=== PATIENT | male | born 1930 | race Two or more races ===

== ENCOUNTER 2016-05-24 01:01 | Inpatient (IN) | payer MEDICARE, BC ==
[2016-05-23 20:00] VITALS: BP 132/71
[~2016-05-24] VITALS: Ht 180.3 cm; Wt 62.1 kg
[2016-05-24 02:15] VITALS: BP 132/91
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
[2016-05-24] MEDS ORDERED: MAG HYDROX/AL HYDROX/SIMETH 30 ML UDC PO PRN (02:30)
[2016-05-24] MEDS ORDERED: ACETAMINOPHEN 325 MG TABLET PO PRN (02:30)
[2016-05-24] MEDS ORDERED: MAGNESIUM HYDROXIDE 30 ML UDC PO PRN (02:30)
[2016-05-24] MEDS ORDERED: IPRA3AMP IH (03:11)
[2016-05-24] MEDS ORDERED: FURO20TA4 PO (03:11)
[2016-05-24] MEDS ORDERED: POTA-58 PO (03:11)
[2016-05-24] MEDS ORDERED: PRED5TAB PO (03:11)
[2016-05-24] MEDS ORDERED: CLOP75TA2 PO (03:11)
[2016-05-24] MEDS ORDERED: AZIT250T6 PO (03:11)
[2016-05-24] MEDS ORDERED: RISP0.5T20 PO ×2 (03:11)
[2016-05-24] MEDS ORDERED: ATOR20TA PO (03:11)
[2016-05-24 03:57] VITALS: BP 86/50
[2016-05-24 03:59] VITALS: BP 86/50
[2016-05-24 04:01] VITALS: BP 132/71
--- NOTE | 2016-05-24 06:00 | NUR ---
GPS RN NOTE, PATIENT NEEDS A MED RECON AND BREATHING TREATMENTS. PAGED [facility] AND INFORMED DR AZEB SHAFFER. DR SHAFFER ORDERED ALBUTEROL 2.5MG Q4HR PRN VIA NEB AND IPRATROPIUM 0.5ML Q4HR PRN VIA NEB. DR SHAFFER ALSO STATED THAT SHE WOULD REVIEW MED RECON. WILL CONTINUE TO MONITOR THIS PATIENT.
[2016-05-24] MEDS ORDERED: IPRATROPIUM NEB FS 0.5 MG/2.5 ML AMPUL.NEB NEB PRN (06:30)
[2016-05-24] MEDS ORDERED: ALBUTEROL FS 2.5 MG/3 ML VIAL.NEB NEB PRN (06:30)
[2016-05-24 07:15] LABS: ALBUMIN 3.6 g/dL (3.4-5.0); BILIRUBIN,TOTAL 0.5 mg/dL (0.2-1.0); CALCIUM, SERUM 8.9 mg/dL (8.5-10.1); CREATININE 1.3 mg/dL (0.6-1.3); POTASSIUM 3.8 mmol/L (3.5-5.1); TOTAL PROTEIN, SERUM 6.7 g/dL (6.4-8.2)
--- NOTE | 2016-05-24 14:13 | NUR ---
PATIENT VERY ANXIOUS,A/O X1 CONFUSED, PARANOID, THROUGH BLANKET ON ARTIFICIAL FLOWERS DYER, COMBATIVE, AGGRESSIVE BEHAVIOR, HARD TO REDIRECT, CALLED DR BARRY, AND GET ORDER ZYPREXA 5 MG/ML IM X1 NOW, ORDER TAKEN, AND CARRIED OUT.
[2016-05-24] MEDS ORDERED: OLANZAPINE 10 MG VIAL IM ONE (14:30)
[2016-05-24] MEDS: BENZTROPINE MESYLATE (1 MG) 1 MG TABLET PO SCH ×3 (14:33→17:11)
--- NOTE | 2016-05-24 14:33 | NUR ---
ADMINISTERED ZYPREXA 5MG/ML IM X1, UPPER DELTOID AREA, PRESCRIBED, V/S TAKEN BP-110/ 85, P- 84, CONTINUED MONITORING.
[2016-05-24 16:00] VITALS: BP 104/71
[2016-05-24] MEDS: risperiDONE-M 0.5 MG TAB.RAPDIS PO SCH ×2 (17:00→17:10)
[2016-05-24] MEDS: busPIRone 5 MG TABLET PO SCH ×2 (17:00→17:11)
[2016-05-24] MEDS ORDERED: Medication Not On Formulary EA (Ipratropium/Albuterol Sulfate (Duoneb 2.5-0.5 Mg/3 Ml So IH SCH (17:00)
--- NOTE | 2016-05-24 18:57 | NUR ---
PT REFUSED 1700 MEDICATION, PT CONFUSED, IRRITABLE, MAGISTRATE NEXT TO THE PATIENT, SAFETY PRECAUTION MAINTAINED ALL THE TIME.
[2016-05-24 20:15] VITALS: BP 110/65
[2016-05-24] MEDS: ALBUTEROL FS 2.5 MG/3 ML VIAL.NEB NEB SCH ×2 (20:15→23:30)
[2016-05-24] MEDS: IPRATROPIUM NEB FS 0.5 MG/2.5 ML AMPUL.NEB NEB SCH ×2 (20:15→23:30)
[2016-05-24 20:43] LABS: BASOPHILS % (AUTO) 0.4 % (0.0-2.0); EOSINOPHILS # (AUTO) 0.9 /CMM (0.0-0.7); HEMATOCRIT 39 % (39-51); HEMOGLOBIN 12.9 g/dL (13.5-17.5); LYMPHOCYTES # (AUTO) 1.5 /CMM (0.8-4.8); LYMPHOCYTES % (AUTO) 23.5 % (20.0-44.0); MEAN CORPUSCULAR HEMOGLOBIN 30 PG (26.0-33.0); MEAN CORPUSCULAR HGB CONC 33 g/dl (31.0-36.0); MEAN CORPUSCULAR VOLUME 92 fL (80-96); MONOCYTES # (AUTO) 0.4 /CMM (0.1-1.30); MONOCYTES % (AUTO) 6.9 % (2.0-12.0); NEUTROPHILS # (AUTO) 3.6 /CMM (1.8-8.9); NEUTROPHILS % (AUTO) 55.2 % (43.0-81.0); PLATELET COUNT (AUTO) 271 /CMM (150-450); RDW COEFFICIENT OF VARIATION 13.1 (11.5-15.0); RED BLOOD CELL COUNT(AUTO) 4.23 MIL/uL (4.5-6.0); WHITE BLOOD COUNT (AUTO) 6.5 K/uL (4.3-11.0)
--- NOTE | 2016-05-24 20:49 | NUR ---
RN NOTES: PATIENT IN THE ROOM, CAREGIVER AT BEDSIDE, WILL LEAVE AT 2300,PT A/O X1, TRYING TO GET OUT OF THE DIANE-CHAIR, HAS DISORGANIZED THOUGHTS, DEMANDING, PT ON ROOM AIR, RESPIRATION EVEN AND UNLABORED, SAFETY PRECAUTION MAINTAINED ALL THE TIME, PERFORM VISUAL CHECK [id number] AND WILL CONTINUE TO MONITOR FOR ANY CHANGES IN BEHAVIOR
[2016-05-24] MEDS: CLOPIDOGREL BISULFATE 75 MG TABLET PO SCH (22:11)
[2016-05-24] MEDS: ATORVASTATIN 10 MG TABLET PO SCH (22:11)
--- NOTE | 2016-05-25 00:10 | NUR ---
PT REFUSED TX, NO RESP DISTRESS NOTED, RN NOTIFIED
[2016-05-25] MEDS: ALBUTEROL FS 2.5 MG/3 ML VIAL.NEB NEB SCH ×7 (03:36→22:49)
[2016-05-25] MEDS: IPRATROPIUM NEB FS 0.5 MG/2.5 ML AMPUL.NEB NEB SCH ×7 (03:36→22:49)
[2016-05-25] MEDS: busPIRone 5 MG TABLET PO SCH ×2 (07:48→18:54)
[2016-05-25] MEDS: POTASSIUM CHLORIDE 20 MEQ TAB.PRT.SR PO SCH (07:48)
[2016-05-25] MEDS: BENZTROPINE MESYLATE (1 MG) 1 MG TABLET PO SCH ×2 (07:48→18:54)
[2016-05-25] MEDS: FUROSEMIDE 20 MG TABLET PO SCH (07:48)
[2016-05-25] MEDS: risperiDONE-M 0.5 MG TAB.RAPDIS PO SCH ×3 (07:49→18:53)
[2016-05-25] MEDS: predniSONE 5 MG TABLET PO SCH (07:49)
[2016-05-25 08:37] VITALS: BP 100/60
--- NOTE | 2016-05-25 12:54 | NUR ---
Initial discharge plan: [place]. [place] 24 [place] [address] [facility] [id number] and will possibly discharge to [facility] [address] [place] [address] . will speak with and OLGA LIDIA Thomas [phone] and will help form safe and proper discharge.
[2016-05-25 15:52] VITALS: BP 106/78
[2016-05-25 20:40] VITALS: BP 104/60
[2016-05-25] MEDS: CLOPIDOGREL BISULFATE 75 MG TABLET PO SCH (21:36)
[2016-05-25] MEDS: ATORVASTATIN 10 MG TABLET PO SCH (21:36)
[2016-05-26] MEDS: ALBUTEROL FS 2.5 MG/3 ML VIAL.NEB NEB SCH ×4 (03:38→15:06)
[2016-05-26] MEDS: IPRATROPIUM NEB FS 0.5 MG/2.5 ML AMPUL.NEB NEB SCH ×4 (03:38→15:06)
[2016-05-26 08:00] VITALS: BP 103/55
[2016-05-26] MEDS: risperiDONE-M 0.5 MG TAB.RAPDIS PO SCH ×3 (08:59→18:21)
[2016-05-26] MEDS: predniSONE 5 MG TABLET PO SCH (08:59)
[2016-05-26] MEDS: FUROSEMIDE 20 MG TABLET PO SCH (08:59)
[2016-05-26] MEDS: BENZTROPINE MESYLATE (1 MG) 1 MG TABLET PO SCH ×2 (09:00→18:21)
[2016-05-26] MEDS: POTASSIUM CHLORIDE 20 MEQ TAB.PRT.SR PO SCH (09:00)
[2016-05-26] MEDS: busPIRone 5 MG TABLET PO SCH ×2 (09:00→18:21)
[2016-05-26 16:00] VITALS: BP 100/55
--- NOTE | 2016-05-26 19:00 | NUR ---
UA/UC STRAIGHT CATH DONE, CALLED LAB FOR UPPER MARKER.
[2016-05-26 19:21] LABS: APPEARANCE,URINE CLEAR (CLEAR); BILIRUBIN,URINE NEGATIVE (NEGATIVE); BLOOD, URINE 3+ Ery/uL (NEGATIVE); COLOR,URINE YELLOW (YELLOW); KETONES,URINE NEGATIVE (NEGATIVE); LEUKOCYTE ESTERASE ,URINE NEGATIVE (NEGATIVE); NITRITE, URINE NEGATIVE (NEGATIVE); PROTEIN,URINE TRACE mg/dl (NEGATIVE); UGLUCOSE NEGATIVE (NEGATIVE); UROBILINOGEN,URINE 0.2 EU/dL (0.2)
[2016-05-26] MEDS: ATORVASTATIN 10 MG TABLET PO SCH (19:59)
[2016-05-26] MEDS: CLOPIDOGREL BISULFATE 75 MG TABLET PO SCH (19:59)
--- NOTE | 2016-05-26 20:12 | NUR ---
RN NOTES Pt WAS READY TO GO TO BED. CAREGIVER REQUESTED NIGHT MEDS EARLY.
[2016-05-26 20:53] LABS: ADD URINE CULTURE NO; BACTERIA,URINE None seen /HPF (None Seen); RBC,URINE 81-100 /HPF (0-2); SQUAMOUS EPITHELIAL CELL,UR Rare /HPF (None Seen); WBC,URINE 0-2 /HPF (0-3)
[2016-05-26 23:31] VITALS: BP 113/72
[2016-05-27] MEDS: IPRATROPIUM NEB FS 0.5 MG/2.5 ML AMPUL.NEB NEB SCH ×5 (00:13→10:44)
[2016-05-27] MEDS: ALBUTEROL FS 2.5 MG/3 ML VIAL.NEB NEB SCH ×5 (00:13→10:44)
--- NOTE | 2016-05-27 06:39 | NUR ---
RN CLOSING NOTES NO SIGNIFICANT CHANGES DURING THE SHIFT. ROUNDED Q15MIN TO CHECK Pt SAFETY. ALL SAFETY PRECAUTIONS IN PLACE. NO S/S OF ACUTE DISTRESS OR SOB NOTED DURING THE NIGHT. ALL NEEDS MET AND ATTENDED TO. WILL ENDORSE TO DAYSHIFT RN FOR Pt's BISI.
[2016-05-27 08:10] VITALS: BP 129/71
[2016-05-27] MEDS: risperiDONE-M 0.5 MG TAB.RAPDIS PO SCH (08:38)
[2016-05-27] MEDS: busPIRone 5 MG TABLET PO SCH (08:38)
[2016-05-27] MEDS: BENZTROPINE MESYLATE (1 MG) 1 MG TABLET PO SCH (08:38)
[2016-05-27] MEDS: predniSONE 5 MG TABLET PO SCH (08:38)
[2016-05-27] MEDS: POTASSIUM CHLORIDE 20 MEQ TAB.PRT.SR PO SCH (08:39)
[2016-05-27] MEDS: FUROSEMIDE 20 MG TABLET PO SCH (08:39)
--- NOTE | 2016-05-27 09:04 | NUR ---
Per Dr. Clemons, patient will be kept for additional days, as patient is not stable for discharge. Notified [facility] ([facility]) that patient will not be returning today. Will provide update to them on Monday. Left voicemail for OLGA LIDIA Thomas [phone] with contact information. Tried calling again but voicemail is full. Ambulance has been placed on will-call.
--- NOTE | 2016-05-27 14:00 | NUR ---
Patient cleared for discharge by Dr. Clemons. DPSHIRA MaceMontyrowan Elytcher [phone] is notified regarding discharge and [facility] ([address] [facility], [address]) able to accept patient today.
--- NOTE | 2016-05-27 14:55 | NUR ---
GPS RN: PATIENT IS DISCHARGED TO [facility] PER DR. BARRY ORDER. PATIENT'S CONDITION IS STABLE FOR DISCHARGE, VS STABLE. PATIENT DENIES ANY SI/HI AT THE TIME OF DISCHARGE. NO BEHAVIORAL ISSUES NOTED. ALL BELONGINGS RETURNED TO THE PATIENT, BELONGINGS FORM SIGNED. EDUCATIONAL EXIT CARE PRINTED, SIGNED AND PROVIDED TO THE PATIENT. MEDICATIONS RECONCILED AND THE COPY OF THE CURRENT MED LIST PROVIDED TO THE PATIENT. PICTURES TAKEN AND DOCUMENTED IN THE CHART. REPORT GIVEN TO LEONOR VILCHIS AT THE FACILITY. PATIENT LEFT THE FACILITY IN STABLE CONDITION ON A GURNEY VIA AMBULANCE.
--- NOTE | 2016-05-27 15:35 | NUR ---
Discharge Note: Patient was discharged to [facility] [address] [place] [address] via [facility]. Monty DUGGAN [phone] was notified. Patient left the unit in stable condition. Facilitated info to IDT team who are in agreement with DC arrangement. The multidisciplinary exitcare form was done, printed, signed, and given to the patient.
[2016-05-28] MEDS ORDERED: BUSP5TAB3 PO (18:10)
[2016-05-28] MEDS ORDERED: ATOR10TA PO (18:10)
[2016-05-28] MEDS ORDERED: RISP0.2515 PO (18:10)
[2016-05-28] MEDS ORDERED: BENZ0.5T3 PO (18:10)
[2016-05-28] MEDS ORDERED: POTA20TA83 PO (18:10)
== END 2016-05-27 14:55 | DRG 885 ==
LOC: GPS 01:01
PROVIDERS: ADMIT Psychiatry & Neurology Psychosomatic Medicine; ATTEND Contractor
DX: F33.2 Major depressive disorder, recurrent severe without psychotic features (principal); N17.0 Acute kidney failure with tubular necrosis; I11.0 Hypertensive heart disease with heart failure; F03.91 Unspecified dementia, unspecified severity, with behavioral disturbance; I50.30 Unspecified diastolic (congestive) heart failure; E78.5 Hyperlipidemia, unspecified; F29 Unspecified psychosis not due to a substance or known physiological condition; J44.9 Chronic obstructive pulmonary disease, unspecified; Z96.649 Presence of unspecified artificial hip joint
CPT/HCPCS: 36415; 80048-TC; 80053-TC; 80061-TC; 81000-TC; 85025-TC; 87081-TC; 87086-TC; J3490; J7512; Z7610

== ENCOUNTER 2016-05-28 17:51 | Inpatient (IN) | payer MEDICARE, BC ==
[~2016-05-28] VITALS: Ht 175.3 cm; Wt 72.6 kg
[~2016-05-28 17:51] MED LIST: ATOR20TA PO; AZIT250T6 PO; CLOP75TA2 PO; FURO20TA4 PO; IPRA3AMP IH; POTA-58 PO; PRED5TAB PO; RISP0.5T20 PO
--- NOTE | 2016-05-28 18:00 | NUR ---
AAOX2, CAME FROM [facility] FOR EVALUATION OF INCREASED AGGRESSIVE BEHAVIOR. RESP IS EVEN AND UNLABORED WITH NAD NOTED. SKIN IS WARM AND DRY. THE PATIENT WAS COOPERATIVE DURING ASSESSMENT. PATIENT WAS CALM. AWAITING MD FOR EVAL
--- NOTE | 2016-05-28 18:05 | NUR ---
DR MONTIEL AT BS FOR VINAYAK.
[2016-05-28] MEDS ORDERED: BENZ0.5T3 PO (18:10)
[2016-05-28] MEDS ORDERED: ATOR10TA PO (18:10)
[2016-05-28] MEDS ORDERED: POTA20TA83 PO (18:10)
[2016-05-28] MEDS ORDERED: RISP0.2515 PO (18:10)
[2016-05-28] MEDS ORDERED: BUSP5TAB3 PO (18:10)
[2016-05-28] MEDS ORDERED: IV SET PRIMARY 1 EA INFUS.SET MC ONE (18:19)
[2016-05-28] MEDS ORDERED: IV NS 0.9% 1,000 ML ONE (18:19)
[2016-05-28 18:24] LABS: BASOPHILS # (AUTO) 0.1 /CMM (0.0-0.2); BASOPHILS % (AUTO) 0.6 % (0.0-2.0); EOSINOPHILS # (AUTO) 0.4 /CMM (0.0-0.7); EOSINOPHILS % (AUTO) 4.9 % (0.0-6.0); HEMATOCRIT 36 % (39-51); HEMOGLOBIN 12.2 g/dL (13.5-17.5); LYMPHOCYTES # (AUTO) 0.9 /CMM (0.8-4.8); LYMPHOCYTES % (AUTO) 11.1 % (20.0-44.0); MEAN CORPUSCULAR HEMOGLOBIN 31 PG (26.0-33.0); MEAN CORPUSCULAR HGB CONC 33 g/dl (31.0-36.0); MEAN CORPUSCULAR VOLUME 93 fL (80-96); MONOCYTES # (AUTO) 0.7 /CMM (0.1-1.30); MONOCYTES % (AUTO) 8.4 % (2.0-12.0); NEUTROPHILS # (AUTO) 6.4 /CMM (1.8-8.9); PLATELET COUNT (AUTO) 237 /CMM (150-450); RDW COEFFICIENT OF VARIATION 12.6 (11.5-15.0); RED BLOOD CELL COUNT(AUTO) 3.92 MIL/uL (4.5-6.0); WHITE BLOOD COUNT (AUTO) 8.5 K/uL (4.3-11.0)
[2016-05-28] MEDS ORDERED: IV NS 0.9% 1,000 ML BAG IV ONE (18:30)
--- NOTE | 2016-05-28 18:30 | NUR ---
CALLED NURSING SUP. FOR GPS BED
[2016-05-28 18:35] LABS: CREATININE 1.7 mg/dL (0.6-1.3); POTASSIUM 4.6 mmol/L (3.5-5.1)
[2016-05-28 18:40] LABS: CALCIUM, SERUM 8.9 mg/dL (8.5-10.1)
--- NOTE | 2016-05-28 19:15 | NUR ---
RECEIVED PATIENT IN BED, ALERT ORIENTED TO NAME, CONFUSION NOTED. NO S/S OF ACUTE DISTRESS. CAREGIVER AT BEDSIDE. SAFETY MAINTAINED. REPORIENTATION DONE. PENDING ADMISSION.
--- NOTE | 2016-05-28 19:50 | NUR ---
Gave report to Anali VILCHIS in GPS for waylon.
[2016-05-28] MEDS ORDERED: WATER FOR INJECTION,STERILE 10 ML ONE (19:52)
[2016-05-28] MEDS ORDERED: OLANZAPINE 10 MG VIAL IM ONE ×2 (19:52→20:00)
[2016-05-28 20:00] VITALS: BP_SYST 141; BP_SYST 98; BP_DIAS 70; BP_DIAS 76
--- NOTE | 2016-05-28 20:01 | NUR ---
TRANSPORTED TO [facility] 215, NO INCIDENT NOTED.
[2016-05-28] MEDS ORDERED: MAG HYDROX/AL HYDROX/SIMETH 30 ML UDC PO PRN (20:30)
[2016-05-28] MEDS ORDERED: ACETAMINOPHEN 325 MG TABLET PO PRN (20:30)
[2016-05-28] MEDS ORDERED: MAGNESIUM HYDROXIDE 30 ML UDC PO PRN (20:30)
--- NOTE | 2016-05-28 22:29 | NUR ---
GPS/RN NOTE: ADMITTED FROM [facility], FOR DTO AND GD. [facility] VIA [facility] ACCOMPANIED BY 1 MALE ER STAFF. ADMITTED ON 5150 FOR DTO AND GD. PER HOLD PATIENT IS HERE TO DUE TO INCREASING AGITATION, PHYSICALLY AGGRESSIVE TO STAFF AND OTHER RESIDENTS. DURING FACE TO FACE ASSESSMENT, PATIENT AWAKE, ALERT, ORIENTED X1, CONFUSED, DISORGANIZED, DISORIENTED, RAMBLING. PER STAFF AT THE FACILITY PATIENT HAD AN EPISODE OF HITTING STAFF, PATIENT IS ALSO IMPULSIVE, UNPREDICTABLE AND HAS NO REGARDS FOR SAFETY. 5150 WAS REVIEWED AND APPEARS TO REFLECT THE PRESENTATION OF THE PATIENT. PLACED PATIENT IN BED, SHOWS NO S/S OR COMPLAINTS AT THIS TIME. QUIET, CALM. NO APPARENT DISTRESS NOTED. RESPIRATION EVEN, BREATHING PATTERN NON-LABORED WITH EQUAL RISE AND FALL OF THE CHEST. NOT ABLE TO FOLLOW DIRECTIONS DUE TO CONFUSION. SKIN NOTED REDNESS, DISCOLORATION ON BOTH UPPER AND LOWER EXTREMITIES. PATIENT IS UNDER THE PSYCHIATRIC CARE OF DR BARRY AND UNDER THE MEDICAL CARE OF DR. FORD. MED. RECON WERE DONE. PATIENT'S BELONGINGS INVENTORIED AND CHECKED FOR CONTRABAND, ADVANCE DIRECTIVE PREFERENCE, IMMUNIZATION QUESTIONNAIRE, VALUABLES WERE CHECKED IN TO SAFE AND NECESSARY PAPERWORK COMPLETED.. PATIENT'S BED LOCKED AND AND PLACED ON LOWEST POSITION. WILL CONTINUE TO MONITOR Q 15 MINS. TO MAINTAIN SAFETY.
[2016-05-29] MEDS ORDERED: Medication Not On Formulary EA (Ipratropium/Albuterol Sulfate (Duoneb 2.5-0.5 Mg/3 Ml So IH PRN
[2016-05-29 07:25] LABS: BASOPHILS % (AUTO) 0.6 % (0.0-2.0); EOSINOPHILS # (AUTO) 0.6 /CMM (0.0-0.7); EOSINOPHILS % (AUTO) 8.9 % (0.0-6.0); HEMATOCRIT 35 % (39-51); HEMOGLOBIN 11.5 g/dL (13.5-17.5); LYMPHOCYTES # (AUTO) 1.4 /CMM (0.8-4.8); LYMPHOCYTES % (AUTO) 20.1 % (20.0-44.0); MEAN CORPUSCULAR HEMOGLOBIN 31 PG (26.0-33.0); MEAN CORPUSCULAR HGB CONC 33 g/dl (31.0-36.0); MEAN CORPUSCULAR VOLUME 93 fL (80-96); MONOCYTES # (AUTO) 0.8 /CMM (0.1-1.30); MONOCYTES % (AUTO) 11.1 % (2.0-12.0); NEUTROPHILS % (AUTO) 59.3 % (43.0-81.0); PLATELET COUNT (AUTO) 245 /CMM (150-450); RDW COEFFICIENT OF VARIATION 13.4 (11.5-15.0); RED BLOOD CELL COUNT(AUTO) 3.72 MIL/uL (4.5-6.0); WHITE BLOOD COUNT (AUTO) 6.8 K/uL (4.3-11.0)
[2016-05-29 07:41] LABS: ALBUMIN 3.8 g/dL (3.4-5.0); BILIRUBIN,TOTAL 0.7 mg/dL (0.2-1.0); CALCIUM, SERUM 8.8 mg/dL (8.5-10.1); CREATININE 1.5 mg/dL (0.6-1.3); TOTAL PROTEIN, SERUM 6.8 g/dL (6.4-8.2)
[2016-05-29 08:00] VITALS: BP 101/67
[2016-05-29] MEDS ORDERED: IPRATROPIUM NEB FS 0.5 MG/2.5 ML AMPUL.NEB NEB PRN (08:30)
[2016-05-29] MEDS ORDERED: ALBUTEROL FS 2.5 MG/3 ML VIAL.NEB NEB PRN (08:30)
[2016-05-29] MEDS: FUROSEMIDE 20 MG TABLET PO SCH (08:44)
[2016-05-29] MEDS: CLOPIDOGREL BISULFATE 75 MG TABLET PO SCH (08:44)
[2016-05-29] MEDS: POTASSIUM CHLORIDE 20 MEQ TAB.PRT.SR PO SCH (08:45)
[2016-05-29] MEDS: predniSONE 5 MG TABLET PO SCH (08:45)
[2016-05-29] MEDS: LORAZEPAM 0.5 MG TABLET PO PRN ×3 (08:51→21:08)
[2016-05-29] MEDS: risperiDONE 0.25 MG TABLET PO SCH ×2 (10:55→17:25)
[2016-05-29] MEDS: busPIRone 5 MG TABLET PO SCH ×2 (10:55→17:25)
--- NOTE | 2016-05-29 15:20 | NUR ---
PATIENT RESTLESS, AGITATED, STRIKING OUT AT STAFF, NON REDIRECTABLE, ADMINISTERED ATIVAN PO ORDERED, WILL CONTINUE TO MONITOR.
[2016-05-29 16:00] VITALS: BP 135/66
[2016-05-29] MEDS: BENZTROPINE MESYLATE (1 MG) 1 MG TABLET PO SCH (17:25)
--- NOTE | 2016-05-29 19:00 | NUR ---
gps/rn PATIENT RESTLESS, AGITATED, ANXIOUS, ADMINISTERED ATIVAN PO ORDERED, WILL CONTINUE TO MONITOR. Addendum: 05/29/16 at 1901 by LEE BENJAMIN RN TIME ADMINISTERED WAS 0855.
[2016-05-29 20:11] VITALS: BP 145/90
[2016-05-29] MEDS: ATORVASTATIN 10 MG TABLET PO SCH (21:00)
--- NOTE | 2016-05-29 21:05 | NUR ---
GPS/RN NOTE: PATIENT ANXIOUS, VERY CONFUSED, ATIVAN 0.5 MG TAB PO GIVEN AT 2107.
[2016-05-30 07:46] LABS: CREATININE 1.5 mg/dL (0.6-1.3); PHOSPHORUS 3.4 mg/dL (2.5-4.9); POTASSIUM 4.3 mmol/L (3.5-5.1)
[2016-05-30 08:00] VITALS: BP 108/68
[2016-05-30] MEDS: FUROSEMIDE 20 MG TABLET PO SCH (09:19)
[2016-05-30] MEDS: risperiDONE 0.25 MG TABLET PO SCH ×2 (09:19→17:58)
[2016-05-30] MEDS: CLOPIDOGREL BISULFATE 75 MG TABLET PO SCH (09:19)
[2016-05-30] MEDS: POTASSIUM CHLORIDE 20 MEQ TAB.PRT.SR PO SCH (09:19)
[2016-05-30] MEDS: busPIRone 5 MG TABLET PO SCH ×2 (09:20→17:58)
[2016-05-30] MEDS: LORAZEPAM 0.5 MG TABLET PO PRN ×2 (09:20→21:39)
[2016-05-30] MEDS: BENZTROPINE MESYLATE (1 MG) 1 MG TABLET PO SCH ×2 (09:20→17:58)
[2016-05-30] MEDS: predniSONE 5 MG TABLET PO SCH (09:20)
--- NOTE | 2016-05-30 10:00 | NUR ---
ms rn notice right hip bruise, will call dr. abel for xray order.
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
[2016-05-30] MEDS: Z GUARD REMEDY 2 OZ OINT TP SCH ×2 (13:00→18:01)
[2016-05-30] MEDS ORDERED: Z GUARD REMEDY 2 OZ OINT TP PRN (13:00)
[2016-05-30] MEDS ORDERED: DIVALPROEX SODIUM 125 MG CAP.SPRINK PO ONE (14:00)
[2016-05-30] MEDS: UREA 10% -AHA 4% CREAM 57 GM TUBE TP SCH ×2 (15:27→17:59)
[2016-05-30] MEDS: CLOTRIMAZOLE 1% 15 GM TUBE TP SCH (15:28)
[2016-05-30 16:00] VITALS: BP 111/62
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
--- NOTE | 2016-05-30 17:20 | NUR ---
ms edelmira called dr. abel for right hip xray w/ order and carried out.
[2016-05-30 20:00] VITALS: BP 144/81
[2016-05-30] MEDS: DIVALPROEX SODIUM 125 MG CAP.SPRINK PO SCH (20:27)
[2016-05-30] MEDS: MUPIROCIN OINT 2% 22 GM TUBE SCH (20:29)
[2016-05-30] MEDS: ATORVASTATIN 10 MG TABLET PO SCH (21:38)
[2016-05-30] MEDS: TEMAZEPAM 7.5 MG CAPSULE PO PRN (22:49)
[2016-05-31 08:00] VITALS: BP 106/52
[2016-05-31] MEDS: FUROSEMIDE 20 MG TABLET PO SCH (08:09)
[2016-05-31] MEDS: CLOPIDOGREL BISULFATE 75 MG TABLET PO SCH (08:09)
[2016-05-31] MEDS: risperiDONE 0.25 MG TABLET PO SCH (08:09)
[2016-05-31] MEDS: DIVALPROEX SODIUM 125 MG CAP.SPRINK PO SCH ×2 (08:09→20:17)
[2016-05-31] MEDS: POTASSIUM CHLORIDE 20 MEQ TAB.PRT.SR PO SCH (08:09)
[2016-05-31] MEDS: busPIRone 5 MG TABLET PO SCH ×3 (08:09→17:20)
[2016-05-31] MEDS: CLOTRIMAZOLE 1% 15 GM TUBE TP SCH ×2 (08:10→17:33)
[2016-05-31] MEDS: UREA 10% -AHA 4% CREAM 57 GM TUBE TP SCH ×2 (08:10→17:33)
[2016-05-31] MEDS: predniSONE 5 MG TABLET PO SCH (08:10)
[2016-05-31] MEDS: MUPIROCIN OINT 2% 22 GM TUBE SCH ×2 (08:10→20:18)
[2016-05-31] MEDS: BENZTROPINE MESYLATE (1 MG) 1 MG TABLET PO SCH (08:10)
[2016-05-31] MEDS: Z GUARD REMEDY 2 OZ OINT TP SCH ×2 (08:11→17:33)
[2016-05-31] MEDS: LORAZEPAM 0.5 MG TABLET PO PRN ×2 (09:44→21:11)
--- NOTE | 2016-05-31 09:45 | NUR ---
GPS/RN PATIENT RESTLESS, AGITATED, ANXIOUS,STRIKING OUT AT STAFF, ADMINISTERED ATIVAN PO ORDERED, WILL CONTINUE TO MONITOR.
--- NOTE | 2016-05-31 10:35 | NUR ---
Initial discharge plan: Pt. was discharged to [facility] [address] [place] [address] but was sent back and is unable to return. Pt. will need placement. IRENE will work with [facility], Monty Thomas [phone] and Harmeet Lo [phone] or [phone] and will help form safe and proper discharge.
--- NOTE | 2016-05-31 10:39 | NUR ---
I have reviewed this patients psychosocial dated 05/25/16 and I can attest to the accuracy of the information therein. There have been no changes since his last assessment. Pt. is irritable. Affect is labile. Unable to assess for SI and HI at this time.
--- NOTE | 2016-05-31 14:16 | NUR ---
Pt. was referred to [place] [id number] [facility] [address]; [phone]. Will follow up with the facility.
[2016-05-31 16:27] VITALS: BP 104/65
[2016-05-31] MEDS: OLANZAPINE 5 MG/TAB.RAPDIS PO SCH (17:20)
[2016-05-31 20:08] VITALS: BP 140/93
[2016-05-31] MEDS: ATORVASTATIN 10 MG TABLET PO SCH (21:11)
[2016-05-31] MEDS: TEMAZEPAM 7.5 MG CAPSULE PO PRN (22:11)
[2016-06-01 08:00] VITALS: BP 102/62
[2016-06-01] MEDS: UREA 10% -AHA 4% CREAM 57 GM TUBE TP SCH ×2 (10:03→17:35)
[2016-06-01] MEDS: MUPIROCIN OINT 2% 22 GM TUBE SCH ×2 (10:03→20:46)
[2016-06-01] MEDS: CLOPIDOGREL BISULFATE 75 MG TABLET PO SCH (10:04)
[2016-06-01] MEDS: POTASSIUM CHLORIDE 20 MEQ TAB.PRT.SR PO SCH (10:04)
[2016-06-01] MEDS: OLANZAPINE 5 MG/TAB.RAPDIS PO SCH ×3 (10:04→18:58)
[2016-06-01] MEDS: CLOTRIMAZOLE 1% 15 GM TUBE TP SCH ×2 (10:04→17:36)
[2016-06-01] MEDS: busPIRone 5 MG TABLET PO SCH ×3 (10:05→18:57)
[2016-06-01] MEDS: DIVALPROEX SODIUM 125 MG CAP.SPRINK PO SCH ×2 (10:06→20:48)
[2016-06-01] MEDS: FUROSEMIDE 20 MG TABLET PO SCH (10:06)
[2016-06-01] MEDS: predniSONE 5 MG TABLET PO SCH (10:06)
[2016-06-01] MEDS: Z GUARD REMEDY 2 OZ OINT TP SCH ×2 (10:10→17:35)
[2016-06-01 16:00] VITALS: BP 160/94
--- NOTE | 2016-06-01 17:30 | NUR ---
DR. DEL ROSARIO,DR. BARRY IN TO SEE PT.
--- NOTE | 2016-06-01 18:00 | NUR ---
noted new skin site rt. hip-bruise.additionally put tegaderms on lt. and rt. elbow sites.photo done of rt. hip bruise.
--- NOTE | 2016-06-01 19:45 | NUR ---
GPS/RN NOTE: PATIENT SITTING ON THE DIANE-CHAIR, AWAKE, CONFUSED. NO APPARENT DISTRESS NOTED. ON FALL RISK. FALL PRECAUTION IN PLACE. WILL CONTINUE TO MONITOR Q 15 MINS, TO MAINTAIN SAFETY.
[2016-06-01 20:07] VITALS: BP 116/69
--- NOTE | 2016-06-01 20:20 | NUR ---
GPS/RN NOTE: NEW SCRATCHES NOTED ON BOTH LOWER LEGS, RED AND WITH VERY SMALL AMOUNT OF BLEEDING, CLEANSED WITH NS, PAT DRY, KEPT OPEN TO AIR. TOOK PHOTO.
[2016-06-01] MEDS: ATORVASTATIN 10 MG TABLET PO SCH (21:35)
[2016-06-02] MEDS: TEMAZEPAM 7.5 MG CAPSULE PO PRN ×2 (01:30→21:05)
--- NOTE | 2016-06-02 01:31 | NUR ---
GPS/RN NOTE: PATIENT STILL AWAKE, UNABLE TO SLEEP, TEMAZEPAM 7.5 MG CAP 1 PO GIVEN.
[2016-06-02 07:16] LABS: BASOPHILS % (AUTO) 0.4 % (0.0-2.0); EOSINOPHILS # (AUTO) 0.4 /CMM (0.0-0.7); EOSINOPHILS % (AUTO) 5.7 % (0.0-6.0); HEMATOCRIT 37 % (39-51); HEMOGLOBIN 12.2 g/dL (13.5-17.5); LYMPHOCYTES # (AUTO) 1.4 /CMM (0.8-4.8); LYMPHOCYTES % (AUTO) 21.6 % (20.0-44.0); MEAN CORPUSCULAR HEMOGLOBIN 31 PG (26.0-33.0); MEAN CORPUSCULAR HGB CONC 33 g/dl (31.0-36.0); MEAN CORPUSCULAR VOLUME 93 fL (80-96); MONOCYTES # (AUTO) 0.5 /CMM (0.1-1.30); MONOCYTES % (AUTO) 7.9 % (2.0-12.0); NEUTROPHILS # (AUTO) 4.2 /CMM (1.8-8.9); NEUTROPHILS % (AUTO) 64.4 % (43.0-81.0); PLATELET COUNT (AUTO) 277 /CMM (150-450); RDW COEFFICIENT OF VARIATION 13.4 (11.5-15.0); RED BLOOD CELL COUNT(AUTO) 3.99 MIL/uL (4.5-6.0); WHITE BLOOD COUNT (AUTO) 6.6 K/uL (4.3-11.0)
[2016-06-02 07:26] LABS: CREATININE 1.4 mg/dL (0.6-1.3); MAGNESIUM 2.2 mg/dL (1.8-2.4); PHOSPHORUS 3.2 mg/dL (2.5-4.9)
[2016-06-02 08:00] VITALS: BP 116/75
[2016-06-02] MEDS: DIVALPROEX SODIUM 125 MG CAP.SPRINK PO SCH ×2 (09:20→21:05)
[2016-06-02] MEDS: predniSONE 5 MG TABLET PO SCH (09:21)
[2016-06-02] MEDS: FUROSEMIDE 20 MG TABLET PO SCH (09:21)
[2016-06-02] MEDS: POTASSIUM CHLORIDE 20 MEQ TAB.PRT.SR PO SCH (09:21)
[2016-06-02] MEDS: CLOPIDOGREL BISULFATE 75 MG TABLET PO SCH (09:21)
[2016-06-02] MEDS: OLANZAPINE 5 MG/TAB.RAPDIS PO SCH ×3 (09:21→17:02)
[2016-06-02] MEDS: busPIRone 5 MG TABLET PO SCH ×3 (09:22→17:02)
[2016-06-02] MEDS: Z GUARD REMEDY 2 OZ OINT TP SCH ×2 (09:22→17:04)
[2016-06-02] MEDS: CLOTRIMAZOLE 1% 15 GM TUBE TP SCH ×2 (09:32→17:03)
[2016-06-02] MEDS: MUPIROCIN OINT 2% 22 GM TUBE SCH ×2 (09:33→21:13)
[2016-06-02] MEDS: UREA 10% -AHA 4% CREAM 57 GM TUBE TP SCH ×2 (09:33→17:03)
[2016-06-02 16:00] VITALS: BP 92/59
[2016-06-02 19:53] VITALS: BP 108/50
[2016-06-02 20:00] VITALS: BP 108/50
[2016-06-02] MEDS: ATORVASTATIN 10 MG TABLET PO SCH (21:05)
[2016-06-03 08:14] VITALS: BP 95/59
[2016-06-03 08:16] VITALS: BP 140/60
[2016-06-03] MEDS: POTASSIUM CHLORIDE 20 MEQ TAB.PRT.SR PO SCH (08:27)
[2016-06-03] MEDS: OLANZAPINE 5 MG/TAB.RAPDIS PO SCH ×3 (08:27→17:40)
[2016-06-03] MEDS: CLOPIDOGREL BISULFATE 75 MG TABLET PO SCH (08:28)
[2016-06-03] MEDS: DIVALPROEX SODIUM 125 MG CAP.SPRINK PO SCH ×2 (08:28→22:12)
[2016-06-03] MEDS: predniSONE 5 MG TABLET PO SCH (08:28)
[2016-06-03] MEDS: busPIRone 5 MG TABLET PO SCH ×3 (08:28→17:40)
[2016-06-03] MEDS: CLOTRIMAZOLE 1% 15 GM TUBE TP SCH ×2 (08:44→17:41)
[2016-06-03] MEDS: MUPIROCIN OINT 2% 22 GM TUBE SCH ×2 (08:45→21:00)
[2016-06-03] MEDS: Z GUARD REMEDY 2 OZ OINT TP SCH ×2 (08:59→17:41)
[2016-06-03] MEDS: UREA 10% -AHA 4% CREAM 57 GM TUBE TP SCH ×2 (09:00→17:41)
[2016-06-03 09:32] LABS: VIT D, 25-HYDROXY 26.6 ng/mL (30.0-100.0)
--- NOTE | 2016-06-03 11:00 | NUR ---
GPS/RN RIGHT HIP DISCOLORATION FOUND. PICTURES TAKEN AND PLACED IN THE CHART.
[2016-06-03] MEDS ORDERED: ERGOCALCIFEROL (VITAMIN D 2) 50,000 UNIT CAPSULE PO SCH (12:00)
--- NOTE | 2016-06-03 13:01 | NUR ---
GPS/RN NEW ORDERS FROM DR RIDER RECEIVED AND CARRIED OUT.
[2016-06-03 13:51] LABS: CALCIUM, SERUM 8.5 mg/dL (8.5-10.1); CREATININE 1.5 mg/dL (0.6-1.3); MAGNESIUM 2.1 mg/dL (1.8-2.4); POTASSIUM 3.9 mmol/L (3.5-5.1)
[2016-06-03 16:44] VITALS: BP 102/55
[2016-06-03 20:22] VITALS: BP 111/72
[2016-06-03] MEDS: ATORVASTATIN 10 MG TABLET PO SCH (22:12)
[2016-06-04] MEDS: LORAZEPAM 0.5 MG TABLET PO PRN (03:29)
[2016-06-04 07:24] LABS: ALBUMIN 3.7 g/dL (3.4-5.0); BILIRUBIN,TOTAL 0.6 mg/dL (0.2-1.0); CALCIUM, SERUM 9.2 mg/dL (8.5-10.1); CREATININE 1.5 mg/dL (0.6-1.3); POTASSIUM 4.1 mmol/L (3.5-5.1); TOTAL PROTEIN, SERUM 7.2 g/dL (6.4-8.2)
[2016-06-04 07:36] LABS: BASOPHILS % (AUTO) 0.4 % (0.0-2.0); EOSINOPHILS # (AUTO) 0.3 /CMM (0.0-0.7); EOSINOPHILS % (AUTO) 4.6 % (0.0-6.0); HEMATOCRIT 38 % (39-51); HEMOGLOBIN 12.4 g/dL (13.5-17.5); LYMPHOCYTES # (AUTO) 1.5 /CMM (0.8-4.8); LYMPHOCYTES % (AUTO) 25.9 % (20.0-44.0); MEAN CORPUSCULAR HEMOGLOBIN 30 PG (26.0-33.0); MEAN CORPUSCULAR HGB CONC 33 g/dl (31.0-36.0); MEAN CORPUSCULAR VOLUME 92 fL (80-96); MONOCYTES # (AUTO) 0.4 /CMM (0.1-1.30); NEUTROPHILS # (AUTO) 3.5 /CMM (1.8-8.9); NEUTROPHILS % (AUTO) 62.1 % (43.0-81.0); PLATELET COUNT (AUTO) 265 /CMM (150-450); RDW COEFFICIENT OF VARIATION 13.2 (11.5-15.0); RED BLOOD CELL COUNT(AUTO) 4.11 MIL/uL (4.5-6.0); WHITE BLOOD COUNT (AUTO) 5.7 K/uL (4.3-11.0)
[2016-06-04 08:39] VITALS: BP 93/58
[2016-06-04] MEDS: DIVALPROEX SODIUM 125 MG CAP.SPRINK PO SCH ×2 (09:03→21:47)
[2016-06-04] MEDS: busPIRone 5 MG TABLET PO SCH ×3 (09:03→17:27)
[2016-06-04] MEDS: predniSONE 5 MG TABLET PO SCH (09:03)
[2016-06-04] MEDS: OLANZAPINE 5 MG/TAB.RAPDIS PO SCH ×2 (09:03→17:27)
[2016-06-04] MEDS: CLOPIDOGREL BISULFATE 75 MG TABLET PO SCH (09:03)
[2016-06-04] MEDS: UREA 10% -AHA 4% CREAM 57 GM TUBE TP SCH ×2 (09:04→17:28)
[2016-06-04] MEDS: CLOTRIMAZOLE 1% 15 GM TUBE TP SCH ×2 (09:04→17:27)
[2016-06-04] MEDS: Z GUARD REMEDY 2 OZ OINT TP SCH ×2 (09:04→17:27)
[2016-06-04] MEDS: MUPIROCIN OINT 2% 22 GM TUBE SCH ×2 (09:05→21:49)
[2016-06-04 16:07] VITALS: BP 109/63
[2016-06-04 20:00] VITALS: BP 104/66
[2016-06-04] MEDS: ATORVASTATIN 10 MG TABLET PO SCH (21:47)
[2016-06-04] MEDS: TEMAZEPAM 7.5 MG CAPSULE PO PRN (21:48)
[2016-06-05 07:32] LABS: ALBUMIN 3.1 g/dL (3.4-5.0); BILIRUBIN,TOTAL 0.5 mg/dL (0.2-1.0); CALCIUM, SERUM 8.7 mg/dL (8.5-10.1); CREATININE 1.3 mg/dL (0.6-1.3); TOTAL PROTEIN, SERUM 6.2 g/dL (6.4-8.2)
[2016-06-05] MEDS: OLANZAPINE 5 MG/TAB.RAPDIS PO SCH ×2 (07:56→17:18)
[2016-06-05 08:00] VITALS: BP 100/61
[2016-06-05] MEDS: predniSONE 5 MG TABLET PO SCH (08:34)
[2016-06-05] MEDS: DIVALPROEX SODIUM 125 MG CAP.SPRINK PO SCH ×2 (08:34→21:39)
[2016-06-05] MEDS: UREA 10% -AHA 4% CREAM 57 GM TUBE TP SCH ×2 (08:35→17:21)
[2016-06-05] MEDS: MUPIROCIN OINT 2% 22 GM TUBE SCH ×2 (08:35→21:43)
[2016-06-05] MEDS: busPIRone 5 MG TABLET PO SCH ×3 (08:35→17:19)
[2016-06-05] MEDS: CLOPIDOGREL BISULFATE 75 MG TABLET PO SCH (08:35)
[2016-06-05] MEDS: CLOTRIMAZOLE 1% 15 GM TUBE TP SCH ×2 (08:36→17:21)
[2016-06-05] MEDS: Z GUARD REMEDY 2 OZ OINT TP SCH ×2 (08:36→17:22)
[2016-06-05 14:37] LABS: APPEARANCE,URINE SL CLOUDY (CLEAR); BILIRUBIN,URINE NEGATIVE (NEGATIVE); BLOOD, URINE 3+ Ery/uL (NEGATIVE); COLOR,URINE YELLOW (YELLOW); KETONES,URINE NEGATIVE (NEGATIVE); LEUKOCYTE ESTERASE ,URINE NEGATIVE (NEGATIVE); NITRITE, URINE NEGATIVE (NEGATIVE); PH,URINE 5.5 (5.0-8.0); PROTEIN,URINE TRACE mg/dl (NEGATIVE); UGLUCOSE NEGATIVE (NEGATIVE); UROBILINOGEN,URINE 0.2 EU/dL (0.2)
[2016-06-05 15:04] LABS: ADD URINE CULTURE NO; BACTERIA,URINE Rare /HPF (None Seen); RBC,URINE 21-50 /HPF (0-2); SQUAMOUS EPITHELIAL CELL,UR 0-2 /HPF (None Seen)
[2016-06-05 16:00] VITALS: BP 115/67
--- NOTE | 2016-06-05 16:42 | NUR ---
GPS RN NOTE: UA COLLECTED IN AND OUT DR VINCENT NOTIFIED OF THE LAB RESULT NEW T.O. ORDER CBC FOR TOMORROW, ORDER PLACED AND CARED OUT
[2016-06-05 20:21] VITALS: BP 110/55
[2016-06-05] MEDS: ATORVASTATIN 10 MG TABLET PO SCH (21:40)
[2016-06-05] MEDS: TEMAZEPAM 7.5 MG CAPSULE PO PRN (21:41)
[2016-06-06] MEDS: OLANZAPINE 5 MG/TAB.RAPDIS PO SCH ×2 (07:00→17:42)
[2016-06-06 07:47] LABS: BASOPHILS % (AUTO) 0.3 % (0.0-2.0); EOSINOPHILS # (AUTO) 0.3 /CMM (0.0-0.7); EOSINOPHILS % (AUTO) 5.3 % (0.0-6.0); HEMATOCRIT 37 % (39-51); HEMOGLOBIN 12.2 g/dL (13.5-17.5); LYMPHOCYTES # (AUTO) 1.2 /CMM (0.8-4.8); LYMPHOCYTES % (AUTO) 22.1 % (20.0-44.0); MEAN CORPUSCULAR HEMOGLOBIN 31 PG (26.0-33.0); MEAN CORPUSCULAR HGB CONC 33 g/dl (31.0-36.0); MEAN CORPUSCULAR VOLUME 93 fL (80-96); MONOCYTES # (AUTO) 0.5 /CMM (0.1-1.30); MONOCYTES % (AUTO) 9.1 % (2.0-12.0); NEUTROPHILS # (AUTO) 3.5 /CMM (1.8-8.9); NEUTROPHILS % (AUTO) 63.2 % (43.0-81.0); PLATELET COUNT (AUTO) 252 /CMM (150-450); RDW COEFFICIENT OF VARIATION 13.3 (11.5-15.0); RED BLOOD CELL COUNT(AUTO) 3.99 MIL/uL (4.5-6.0); WHITE BLOOD COUNT (AUTO) 5.6 K/uL (4.3-11.0)
[2016-06-06 07:52] LABS: ALBUMIN 3.4 g/dL (3.4-5.0); BILIRUBIN,TOTAL 0.6 mg/dL (0.2-1.0); CALCIUM, SERUM 8.7 mg/dL (8.5-10.1); CREATININE 1.4 mg/dL (0.6-1.3); MAGNESIUM 2.2 mg/dL (1.8-2.4); POTASSIUM 4.6 mmol/L (3.5-5.1); TOTAL PROTEIN, SERUM 6.7 g/dL (6.4-8.2)
[2016-06-06 08:32] VITALS: BP_SYST 120; BP_SYST 91; BP_DIAS 52; BP_DIAS 69
[2016-06-06] MEDS: MUPIROCIN OINT 2% 22 GM TUBE SCH ×2 (09:00→22:01)
[2016-06-06] MEDS: Z GUARD REMEDY 2 OZ OINT TP SCH ×2 (09:00→17:47)
[2016-06-06] MEDS: UREA 10% -AHA 4% CREAM 57 GM TUBE TP SCH ×2 (09:00→17:47)
[2016-06-06] MEDS ORDERED: IV NS 0.45% 500 ML IV ONE ×2 (09:00→09:30)
[2016-06-06] MEDS: DIVALPROEX SODIUM 125 MG CAP.SPRINK PO SCH ×2 (10:03→20:48)
[2016-06-06] MEDS: busPIRone 5 MG TABLET PO SCH ×3 (10:04→17:42)
[2016-06-06] MEDS: predniSONE 5 MG TABLET PO SCH (10:04)
[2016-06-06] MEDS: CLOPIDOGREL BISULFATE 75 MG TABLET PO SCH (10:04)
[2016-06-06] MEDS: CLOTRIMAZOLE 1% 15 GM TUBE TP SCH ×2 (10:13→17:47)
[2016-06-06] MEDS ORDERED: IV D5/0.45 NACL 1,000 ML IV ONE (11:26)
[2016-06-06] MEDS ORDERED: IV SET PRIMARY PUMP SET 1 EA INFUS.SET MC ONE (11:26)
[2016-06-06] MEDS: IV D5/0.45 NACL 1,000 ML IV PRN ×2 (11:43→22:33)
--- NOTE | 2016-06-06 12:10 | NUR ---
IRENE spoke with Harmeet Agustin [phone] who agrees with plan to discharge patient to a SNF.
[2016-06-06 12:11] LABS: CALCITRIOL VIT D,1, 25 DIHYDRO 21.3 pg/mL (19.9-79.3)
[2016-06-06] MEDS: BOOST PLUS FOOD-CHOCLATE 237 ML BOX PO SCH (13:52)
--- NOTE | 2016-06-06 14:55 | NUR ---
IRENE spoke with Vinay from [facility] [address] [facility] [address]; [phone] and they will come assess the patient tomorrow.
--- NOTE | 2016-06-06 14:56 | NUR ---
IRENE spoke with Harmeet Lo [phone] or [phone], pt's conservator, who had faxed capacity declaration form to be filled out by the psychiatrist. SW provided the paperwork to the psychiatrist, who filled out the paperwork and SW faxed it back to Harmeet [phone]
[2016-06-06 16:00] VITALS: BP_SYST 154
[2016-06-06 19:51] VITALS: BP 139/69
[2016-06-06] MEDS: ATORVASTATIN 10 MG TABLET PO SCH (21:58)
[2016-06-06] MEDS: TEMAZEPAM 7.5 MG CAPSULE PO PRN (21:59)
[2016-06-07 07:32] LABS: CALCIUM, SERUM 8.3 mg/dL (8.5-10.1); CREATININE 1.1 mg/dL (0.6-1.3); POTASSIUM 4.1 mmol/L (3.5-5.1)
[2016-06-07 08:00] VITALS: BP 104/60
[2016-06-07] MEDS: OLANZAPINE 5 MG/TAB.RAPDIS PO SCH ×2 (08:24→18:10)
[2016-06-07] MEDS: DIVALPROEX SODIUM 125 MG CAP.SPRINK PO SCH ×2 (09:43→21:29)
[2016-06-07] MEDS: MUPIROCIN OINT 2% 22 GM TUBE SCH ×2 (09:43→21:30)
[2016-06-07] MEDS: CLOTRIMAZOLE 1% 15 GM TUBE TP SCH ×2 (09:44→18:10)
[2016-06-07] MEDS: UREA 10% -AHA 4% CREAM 57 GM TUBE TP SCH ×2 (09:44→18:09)
[2016-06-07] MEDS: Z GUARD REMEDY 2 OZ OINT TP SCH ×2 (09:45→18:11)
[2016-06-07] MEDS: predniSONE 5 MG TABLET PO SCH (09:45)
[2016-06-07] MEDS: CLOPIDOGREL BISULFATE 75 MG TABLET PO SCH (09:45)
[2016-06-07] MEDS: busPIRone 5 MG TABLET PO SCH ×3 (09:45→18:10)
[2016-06-07] MEDS: BOOST PLUS FOOD-CHOCLATE 237 ML BOX PO SCH ×2 (10:01→14:16)
--- NOTE | 2016-06-07 12:11 | NUR ---
IRENE spoke with Harmeet Lo [phone] or [phone], and notified that the facility will come assess the patient and will decide whether pt. is accepted or not.
--- NOTE | 2016-06-07 15:16 | NUR ---
Vinay from [facility] [address] [facility] [address]; [phone] came to assess the patient and they are able to accept. SW followed up with . Pt. will be discharged or Monday.
[2016-06-07 16:00] VITALS: BP 148/81
--- NOTE | 2016-06-07 18:00 | NUR ---
MED COMPLIANT,VERY CONFUSED.VS STABLE.
[2016-06-07 20:25] VITALS: BP 144/83
[2016-06-07] MEDS: TEMAZEPAM 7.5 MG CAPSULE PO PRN (21:29)
[2016-06-07] MEDS: ATORVASTATIN 10 MG TABLET PO SCH (21:29)
[2016-06-08] MEDS: DIVALPROEX SODIUM 125 MG CAP.SPRINK PO SCH ×2 (08:15→21:34)
[2016-06-08] MEDS: busPIRone 5 MG TABLET PO SCH ×3 (08:15→16:34)
[2016-06-08] MEDS: predniSONE 5 MG TABLET PO SCH (08:15)
[2016-06-08] MEDS: CLOPIDOGREL BISULFATE 75 MG TABLET PO SCH (08:15)
[2016-06-08] MEDS: OLANZAPINE 5 MG/TAB.RAPDIS PO SCH ×2 (08:16→16:34)
[2016-06-08] MEDS: Z GUARD REMEDY 2 OZ OINT TP SCH ×2 (08:17→17:14)
[2016-06-08] MEDS: CLOTRIMAZOLE 1% 15 GM TUBE TP SCH ×2 (08:17→17:13)
[2016-06-08] MEDS: MUPIROCIN OINT 2% 22 GM TUBE SCH (08:17)
[2016-06-08 08:45] VITALS: BP 98/51
[2016-06-08] MEDS: UREA 10% -AHA 4% CREAM 57 GM TUBE TP SCH ×2 (10:00→17:14)
[2016-06-08] MEDS: BOOST PLUS FOOD-CHOCLATE 237 ML BOX PO SCH ×2 (10:57→14:15)
--- NOTE | 2016-06-08 13:46 | NUR ---
WOUND CARE CONSULT: PT PRESENTS WITH RT UPPER ARM SKIN TEAR. RECOMMENDATIONS MADE AND DISCUSSED WITH NURSING STAFF. WILL SEE PRN. LINARES IN AGREEMENT WITH PLAN OF CARE. Addendum: 06/08/16 at 1347 by VICKI TAI WNDNU Amended: Links added.
[2016-06-08 16:00] VITALS: BP 120/61
[2016-06-08 20:00] VITALS: BP 109/62
[2016-06-08 20:48] VITALS: BP 109/62
[2016-06-08] MEDS: ATORVASTATIN 10 MG TABLET PO SCH (21:34)
[2016-06-08] MEDS: TEMAZEPAM 7.5 MG CAPSULE PO PRN (21:36)
[2016-06-09 06:46] LABS: BASOPHILS % (AUTO) 0.4 % (0.0-2.0); EOSINOPHILS # (AUTO) 0.2 /CMM (0.0-0.7); EOSINOPHILS % (AUTO) 4.7 % (0.0-6.0); HEMATOCRIT 36 % (39-51); HEMOGLOBIN 11.8 g/dL (13.5-17.5); LYMPHOCYTES # (AUTO) 1.3 /CMM (0.8-4.8); LYMPHOCYTES % (AUTO) 27.3 % (20.0-44.0); MEAN CORPUSCULAR HEMOGLOBIN 31 PG (26.0-33.0); MEAN CORPUSCULAR HGB CONC 33 g/dl (31.0-36.0); MEAN CORPUSCULAR VOLUME 92 fL (80-96); MONOCYTES # (AUTO) 0.6 /CMM (0.1-1.30); MONOCYTES % (AUTO) 12.4 % (2.0-12.0); NEUTROPHILS # (AUTO) 2.7 /CMM (1.8-8.9); NEUTROPHILS % (AUTO) 55.2 % (43.0-81.0); PLATELET COUNT (AUTO) 242 /CMM (150-450); RDW COEFFICIENT OF VARIATION 13.1 (11.5-15.0); RED BLOOD CELL COUNT(AUTO) 3.88 MIL/uL (4.5-6.0); WHITE BLOOD COUNT (AUTO) 4.9 K/uL (4.3-11.0)
[2016-06-09 07:02] LABS: CALCIUM, SERUM 8.7 mg/dL (8.5-10.1); CREATININE 1.1 mg/dL (0.6-1.3); MAGNESIUM 2.2 mg/dL (1.8-2.4); PHOSPHORUS 3.2 mg/dL (2.5-4.9); POTASSIUM 4.1 mmol/L (3.5-5.1)
[2016-06-09 08:06] VITALS: BP 90/60
[2016-06-09] MEDS: OLANZAPINE 5 MG/TAB.RAPDIS PO SCH ×2 (08:12→16:30)
[2016-06-09] MEDS: predniSONE 5 MG TABLET PO SCH (08:12)
[2016-06-09] MEDS: DIVALPROEX SODIUM 125 MG CAP.SPRINK PO SCH (08:12)
[2016-06-09] MEDS: CLOPIDOGREL BISULFATE 75 MG TABLET PO SCH (08:12)
[2016-06-09] MEDS: busPIRone 5 MG TABLET PO SCH ×3 (08:13→16:30)
[2016-06-09] MEDS: Z GUARD REMEDY 2 OZ OINT TP SCH ×2 (08:15→16:31)
[2016-06-09] MEDS: CLOTRIMAZOLE 1% 15 GM TUBE TP SCH ×2 (08:15→16:31)
[2016-06-09] MEDS: UREA 10% -AHA 4% CREAM 57 GM TUBE TP SCH ×2 (08:16→16:31)
--- NOTE | 2016-06-09 10:00 | NUR ---
PT. WITH AN ORDER TO D/C HOLD AND TO D/C TO [facility]. WITHOUT DISTRESS, DENIES SUICIDAL AND HOMICIDAL. TO FOLLOW UP WITH PSYCH AND MEDICAL DOCTORS.
[2016-06-09] MEDS: BOOST PLUS FOOD-CHOCLATE 237 ML BOX PO SCH ×2 (10:05→14:05)
--- NOTE | 2016-06-09 12:13 | NUR ---
IRENE left a voicemail for Harmeet Lo [phone] or [phone] regarding pt's discharge today. IRENE asked to be called back to confirm.
[2016-06-09 16:10] VITALS: BP 100/64
--- NOTE | 2016-06-09 16:42 | NUR ---
Discharge note: Pt. will be discharged to [facility] [address] [facility] [address]; [phone] via [facility]. Pt's conservator, Harmeet Nikole [phone] has been notified before and was left a voicemail today regarding discharge asking to call back. Pt. is calm and cooperative at this time, no suicidal/homicidal ideations. Accepting facility has been provided a report, and all discharge paperwork has been signed.
[2016-06-09 17:04] VITALS: BP 100/64
--- NOTE | 2016-06-09 17:41 | NUR ---
GPS D/C NOTES PT. D/C TO [facility] PER ORDERS IN STABLE CONDITION, NO VERBALIZATION OF SI/ HI PT. LEFT WITH ALL BELONGINGS PICTURE TAKEN PLACED IN CHART MED RECONCILED, THE COPY OF THE CURRENT MED LIST ATTACHED WITH PAPER WORK. EXIT CARE DONE REPORT GIVEN TO THE SINAN RN PT LEFT WITH [facility]
== END 2016-06-09 17:30 | DRG 885 ==
LOC: ER 17:53 → GPS 19:42
PROVIDERS: ADMIT Psychiatry & Neurology Psychiatry; ATTEND Nurse Practitioner Acute Care
DX: F33.2 Major depressive disorder, recurrent severe without psychotic features (principal); N17.0 Acute kidney failure with tubular necrosis; N18.9 Chronic kidney disease, unspecified; I50.32 Chronic diastolic (congestive) heart failure; I13.0 Hypertensive heart and chronic kidney disease with heart failure and stage 1 through stage 4 chronic kidney disease, or unspecified chronic kidney disease; E87.0 Hyperosmolality and hypernatremia; F29 Unspecified psychosis not due to a substance or known physiological condition; F03.90 Unspecified dementia, unspecified severity, without behavioral disturbance, psychotic disturbance, mood disturbance, and anxiety; I25.10 Atherosclerotic heart disease of native coronary artery without angina pectoris; J44.9 Chronic obstructive pulmonary disease, unspecified; Z96.649 Presence of unspecified artificial hip joint; D64.9 Anemia, unspecified; E55.9 Vitamin D deficiency, unspecified; Z85.820 Personal history of malignant melanoma of skin
CPT/HCPCS: 36415; 71010-TC; 73510-TC; 80048-TC; 80053-TC; 80164-TC; 81000-TC; 82306; 82652; 83735-TC; 83970; 84100-TC; 85025-TC; 87081-TC; 87086-TC; 97001-TC; A4606; A6402; A6403; J3490; J7030; J7512; Z7610